=== PATIENT | male | born 1935 | race Caucasian/White ===

== ENCOUNTER 2020-02-09 22:45 | Emergency (ER) | payer MEDICARE ==
--- NOTE | 2020-02-09 23:23 | EDM.PDOC ---
ED HPI GENERAL MEDICAL PROBLEM - General Chief Complaint: Neurological Problem Stated Complaint: MEDICAL VIA [facility] Time Seen by Provider: 02/09/20 23:05 Source of Information: Reports: Patient, EMS, Family, Old Records History Limitations: Reports: No Limitations - History of Present Illness INITIAL COMMENTS - FREE TEXT/NARRATIVE: 84 yo male was sent into the ER via EMS tonight for mild confusion. He couldn't recall how to find the bathroom or his bedroom at home. He says he hit his head on a chair this morning. Later in the day he developed a ESCOBAR that is now less severe after taking some Tylenol. He has not had nausea or vomiting. His gait is not any worse than normal. No fever. PHx of bleeding gastric ulcer from ASA. Onset: Today, Gradual Onset Date: 02/09/20 Duration: Hour(s): Location: Reports: Head (mild ESCOBAR, mild confusion) Quality: Reports: Ache Severity: Mild Improves with: Reports: Medication (Tylenol) Worsens with: Reports: Other (uncertain) Context: Reports: Other (See HPI) Associated Symptoms: Reports: Confusion (mild), Headaches (mild). 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 - Related Data Allergies Allergy/AdvReac Type Severity Reaction Status Date / Time No Known Allergies Allergy Verified 02/09/20 23:00 Home Meds: Home Meds Simvastatin [Zocor] 20 mg PO BEDTIME 06/01/13 [History] Warfarin Sodium 2.5 - 5 mg PO DAILY 06/01/13 [History] hydroCHLOROthiazide [Hydrochlorothiazide] 25 mg PO DAILY 06/01/13 [History] Finasteride [Proscar] 5 mg PO DAILY 02/09/20 [History] Losartan [Cozaar] 12.5 mg PO BID 02/09/20 [History] carvediloL [Carvedilol] 6.25 mg PO DAILY 02/09/20 [History] ED ROS GENERAL - Review of Systems Review Of Systems: See Below Constitutional: Reports: No Symptoms HEENT: Reports: No Symptoms Respiratory: Reports: No Symptoms Cardiovascular: Reports: No Symptoms GI/Abdominal: Reports: No Symptoms : Reports: No Symptoms Musculoskeletal: Reports: No Symptoms Skin: Reports: No Symptoms Neurological: Reports: Confusion (mild), Headache (mild), Numbness (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 Denies: Dizziness Psychiatric: Reports: No Symptoms ED EXAM, NEURO - Physical Exam Exam: See Below Exam Limited By: No Limitations General Appearance: Alert, WD/WN, No Apparent Distress Eye Exam: Bilateral Eye: EOMI, Normal Inspection (pupils bilaterally constricted), PERRL Ears: Normal External Exam, Normal Canal, Hearing Grossly Normal, Other (bilateral hearing aids). No: Normal TMs Nose: Normal Inspection, No Blood Throat/Mouth: Normal Inspection, Normal Lips, Normal Oropharynx, Normal Voice, No Airway Compromise Head Exam: Atraumatic, Normocephalic Neck: Normal Inspection, Supple, Non-Tender Respiratory/Chest: No Respiratory Distress, Lungs Clear, Normal Breath Sounds, No Accessory Muscle Use Cardiovascular: Regular Rate, Rhythm, No Edema GI/Abdominal: Normal Bowel Sounds, Soft, Non-Tender, No Distention Neurological: Alert, Normal Mood/Affect, CN II-XII Intact, No Motor/Sensory Deficits, Oriented x 3 Back Exam: Normal Inspection Extremities: Normal Inspection, Normal Range of Motion, Non-Tender, Pedal Edema (trace pitting edema to both LE's below the knees). No: No Pedal Edema Psychiatric: Normal Affect, Normal Mood Skin Exam: Warm, Dry, Intact, Normal Color, No Rash Course - Vital Signs Text/Narrative:: Case discussed with Dr. Bustos @ [phone] Last Recorded V/S: Last Vital Signs Temp 35.6 C L 02/09/20 22:45 Pulse 70 02/09/20 22:45 Resp 12 02/09/20 22:45 BP 147/77 H 02/09/20 22:45 Pulse Ox 99 02/09/20 22:45 - Orders/Labs/Meds Labs: Laboratory Tests 02/09/20 02/09/20 02/09/20 Range/Units 22:55 22:55 22:55 WBC 4.5 (4.5-11.0) K/uL RBC 4.18 L (4.30-5.90) M/uL Hgb 12.2 (12.0-15.0) g/dL Hct 38.7 L (40.0-54.0) % MCV 93 (80-98) fL MCH 29 (27-31) pg MCHC 32 (32-36) % Plt Count 145 L (150-400) K/uL PT 18.6 H (9.5-12.0) sec INR 1.72 H (0.80-1.20) Sodium 139 L (140-148) mmol/L Potassium 3.9 (3.6-5.2) mmol/L Chloride 101 (100-108) mmol/L Carbon Dioxide 29 (21-32) mmol/L Anion Gap 12.9 (5.0-14.0) mmol/L BUN 21 H (7-18) mg/dL Creatinine 1.1 (0.8-1.3) mg/dL Est Cr Clr Drug Dosing 50.88 mL/min Estimated GFR (MDRD) > 60 (>60) Glucose 106 (74-106) mg/dL Calcium 8.9 (8.5-10.1) mg/dL Troponin I 0.025 (0.000-0.056) ng/mL Urine Color (YELLOW) Urine Appearance (CLEAR) Urine pH (5.0-8.0) Ur Specific [place] (1.008-1.030) Urine Protein (NEGATIVE) mg/dL Urine Glucose (UA) (NEGATIVE) mg/dL Urine Ketones (NEGATIVE) mg/dL Urine Occult Blood (NEGATIVE) Urine Nitrite (NEGATIVE) Urine Bilirubin (NEGATIVE) Urine Urobilinogen (0.2-1.0) EU/dL Ur Leukocyte Esterase (NEGATIVE) Urine RBC (0-5) Urine WBC (0-5) Ur Epithelial Cells Amorphous Sediment Urine Bacteria Urine Mucus 02/09/20 Range/Units 23:45 WBC (4.5-11.0) K/uL RBC (4.30-5.90) M/uL Hgb (12.0-15.0) g/dL Hct (40.0-54.0) % MCV (80-98) fL MCH (27-31) pg MCHC (32-36) % Plt Count (150-400) K/uL PT (9.5-12.0) sec INR (0.80-1.20) Sodium (140-148) mmol/L Potassium (3.6-5.2) mmol/L Chloride (100-108) mmol/L Carbon Dioxide (21-32) mmol/L Anion Gap (5.0-14.0) mmol/L BUN (7-18) mg/dL Creatinine (0.8-1.3) mg/dL Est Cr Clr Drug Dosing mL/min Estimated GFR (MDRD) (>60) Glucose (74-106) mg/dL Calcium (8.5-10.1) mg/dL Troponin I (0.000-0.056) ng/mL Urine Color Yellow (YELLOW) Urine Appearance Clear (CLEAR) Urine pH 7.0 (5.0-8.0) Ur Specific [place] 1.015 (1.008-1.030) Urine Protein Negative (NEGATIVE) mg/dL Urine Glucose (UA) Negative (NEGATIVE) mg/dL Urine Ketones Negative (NEGATIVE) mg/dL Urine Occult Blood Negative (NEGATIVE) Urine Nitrite Negative (NEGATIVE) Urine Bilirubin Negative (NEGATIVE) Urine Urobilinogen 4.0 H (0.2-1.0) EU/dL Ur Leukocyte Esterase Negative (NEGATIVE) Urine RBC 0-5 (0-5) Urine WBC 0-5 (0-5) Ur Epithelial Cells Few Amorphous Sediment Not seen Urine Bacteria Few Urine Mucus Not seen Meds: Medications Discontinued Medications Generic Name Dose Route Start Last Admin Trade Name Freq PRN Reason Stop Dose Admin Aspirin 81 mg 02/09/20 23:54 Aspirin PO 02/09/20 23:55 ONETIME ONE Warfarin Sodium 5 mg 02/10/20 00:06 Coumadin PO 02/10/20 00:07 ONETIME ONE - Radiology Interpretation Free Text/Narrative:: Head CT scan- IMPRESSION: 1. Blurring of the babcock-white junction in the region of the right parietal lobe consistent with an infarct, likely acute to subacute. 2. Old left parietal infarct. 3. Nonspecific white matter disease, likely microangiopathy. Discussed with Dr. Whitfield at 2335 on 02/09/[address] note that all CT scans at this facility use dose modulation, iterative reconstruction, and/or weight-based dosing when appropriate to reduce radiation dose to as low as reasonably achievable. Dictated by Magen Woody MD @ Feb 09 2020 11:28PM (Electronic Signature) CT Results Date: 02/09/20 CT Results Time: 23:40 Departure - Departure Time of Disposition: 00:12 Disposition: Home, Self-Care 01 Condition: Fair Clinical Impression: Subtherapeutic international normalized ratio (INR) CVA (cerebral vascular accident) Qualifiers: CVA mechanism: unspecified Qualified Code(s): I63.9 - Cerebral infarction, unspecified - Discharge Information *PRESCRIPTION DRUG MONITORING PROGRAM REVIEWED*: Not Applicable *COPY OF PRESCRIPTION DRUG MONITORING REPORT IN PATIENT VY: Not Applicable Referrals: Dani Skelton MD [Primary Care Provider] - Forms: ED Department Discharge Additional Instructions: Call your doctor Tuesday morning with your INR report and ask if he wants to adjust your dose. Return here if you should worsen. Sepsis Event Note (ED) - Evaluation Sepsis Screening Result: No Definite Risk - Focused Exam Vital Signs: Vital Signs Temp Pulse Resp BP Pulse Ox 02/09/20 22:45 35.6 C L 70 12 147/77 H 99
--- NOTE | 2020-02-09 23:38 | CRLCT ---
INDICATION: Partial amnesia TECHNIQUE: CT head without contrast. COMPARISON: Head CT 10/14/2012 FINDINGS: CSF spaces: Within normal limits for age. Brain parenchyma: Cerebral atrophy with some indistinctness of the babcock-white junction in the region of the right parietal lobe near the vertex (3, 34). No significant mass effect although no definite encephalomalacia. No intracranial bleed. Note is made of some encephalomalacia within the left parietal lobe consistent with an old infarction. Separate moderately decreased densities present in the deep white matter. Skull base and calvarium: Trace mucosal thickening paranasal sinuses. The visualized orbits are grossly unremarkable. No skull fractures. IMPRESSION: 1. Blurring of the babcock-white junction in the region of the right parietal lobe consistent with an infarct, likely acute to subacute. 2. Old left parietal infarct. 3. Nonspecific white matter disease, likely microangiopathy. Discussed with Dr. Whitfield at 2335 on 02/09/[address] that all CT scans at this facility use dose modulation, iterative reconstruction, and/or weight-based dosing when appropriate to reduce radiation dose to as low as reasonably achievable. Dictated by Magen Woody MD @ Feb 09 2020 11:28PM Signed by Dr. Magen Woody @ Feb 09 2020 11:36PM
[2020-02-09] MEDS ORDERED: Aspirin 81 MG Tab.Chew PO ONE (23:54)
[2020-02-10] MEDS ORDERED: Warfarin 5 MG Tab PO ONE (00:06)
== END 2020-02-10 00:26 | disposition home or self-care (01) ==
LOC: JP.ED 22:45
DX: I63.9 Cerebral infarction, unspecified (principal); R79.1 Abnormal coagulation profile; Z79.899 Other long term (current) drug therapy; Z79.01 Long term (current) use of anticoagulants
CPT/HCPCS: 36415; 70450; 80048; 81001; 84484; 85027; 85610; 99285; A9270; 99284

== ENCOUNTER 2020-03-13 09:05 | Emergency (ER) | payer MEDICARE ==
--- NOTE | 2020-03-13 09:35 | EDM.PDOC ---
ED HPI GENERAL MEDICAL PROBLEM - General Chief Complaint: General Stated Complaint: MEDICAL/CONF.COVID Time Seen by Provider: 03/13/20 09:15 Source of Information: Reports: Patient, EMS History Limitations: Reports: No Limitations - History of Present Illness INITIAL COMMENTS - FREE TEXT/NARRATIVE: 84-year-old male with a history of CVA, tested positive for COVID 1 week ago and is trying quarantine at home with the help from his but over the past 48 to 72 hours is gotten weaker, is having difficulty walking and has fallen twice and has been unable to get up. This morning his finally said she cannot take care of him so called the ambulance. He is still running a low-grade fever but not complaining of increased shortness of breath or cough, does not have pain other than his bruises from falling. He is anticoagulated. His main issue is just profound weakness. Onset: Gradual Duration: Day(s): (Weakness is worsened over the past several days) Location: Reports: Generalized Associated Symptoms: Reports: Cough (Minimal cough), Fever/Chills, Malaise, Weakness. Denies: Chest Pain, Shortness of Breath - Related Data Allergies Allergy/AdvReac Type Severity Reaction Status Date / Time No Known Allergies Allergy Verified 03/13/20 09:18 Home Meds: Home Meds Simvastatin [Zocor] 20 mg PO BEDTIME 06/01/13 [History] Warfarin Sodium 2.5 - 5 mg PO DAILY 06/01/13 [History] hydroCHLOROthiazide [Hydrochlorothiazide] 25 mg PO DAILY 06/01/13 [History] Finasteride [Proscar] 5 mg PO DAILY 02/09/20 [History] Losartan [Cozaar] 12.5 mg PO BID 02/09/20 [History] carvediloL [Carvedilol] 6.25 mg PO DAILY 02/09/20 [History] Past Medical History HEENT History: Reports: Cataract Cardiovascular History: Reports: Afib, Heart Failure, High Cholesterol, Hypertension, Pacemaker Respiratory History: Reports: Sleep Apnea Gastrointestinal History: Reports: PUD Genitourinary History: Reports: BPH Musculoskeletal History: Reports: Arthritis Neurological History: Reports: Concussion, CVA, Neuropathy, Peripheral Psychiatric History: Reports: Depression Hematologic History: Reports: Anticoagulation Therapy - Infectious Disease History Infectious Disease History: Reports: Mumps - Past Surgical History HEENT Surgical History: Reports: Cataract Surgery GI Surgical History: Reports: Appendectomy, Colonoscopy, EGD Social & Family History - Tobacco Use Tobacco Use Status *Q: Never Tobacco User - Caffeine Use Caffeine Use: Reports: Coffee - Recreational Drug Use Recreational Drug Use: No ED ROS GENERAL - Review of Systems Review Of Systems: See Below Constitutional: Reports: Fever, Chills, Malaise HEENT: Denies: Throat Pain Respiratory: Reports: Cough. Denies: Shortness of Breath Cardiovascular: Denies: Chest Pain, Palpitations GI/Abdominal: Denies: Nausea, Vomiting Musculoskeletal: Denies: Muscle Pain, Muscle Stiffness Skin: Reports: Bruising (Bruising has occurred on his chest and left arm from falls). Denies: Cyanosis, Diaphoresis Neurological: Reports: Weakness (Profound diffuse weakness). Denies: Headache ED EXAM, GENERAL - Physical Exam Exam: See Below Exam Limited By: No Limitations General Appearance: Alert, No Apparent Distress, Other (Pleasant gentleman, no distress) Eye Exam: Bilateral Eye: EOMI, Normal Inspection (No jaundice, hydration looks adequate) Head: Atraumatic Neck: Supple, Non-Tender Respiratory/Chest: Lungs Clear Cardiovascular: Regular Rate, Rhythm, No Murmur. No: Tachycardia GI/Abdominal: Soft, Non-Tender Extremities: Other (Patient had a trace of lower extremity edema at the ankles, it is symmetric. He has a bruise on the left arm from a recent fall but no bony tenderness.) Neurological: Alert, Oriented Skin Exam: Other (Several bruises on the chest wall from recent falls) Course - Vital Signs Last Recorded V/S: Last Vital Signs Temp 100.7 F H 03/13/20 09:11 Pulse 70 03/13/20 10:15 Resp 18 03/13/20 10:15 BP 160/85 H 03/13/20 10:15 Pulse Ox 96 03/13/20 10:15 - Orders/Labs/Meds Labs: Laboratory Tests 03/13/20 03/13/20 03/13/20 Range/Units 09:26 09:41 09:41 WBC 3.4 L (4.5-11.0) K/uL RBC 4.51 (4.30-5.90) M/uL Hgb 12.9 (12.0-15.0) g/dL Hct 40.6 (40.0-54.0) % MCV 90 (80-98) fL MCH 29 (27-31) pg MCHC 32 (32-36) % Plt Count 113 L (150-400) K/uL Neut % (Auto) 69 H (36-66) % Lymph % (Auto) 20 L (24-44) % [place] % (Auto) 11 H (2-6) % Eos % (Auto) 0 L (2-4) % Baso % (Auto) 0 (0-1) % PT 23.4 H (9.5-12.0) sec INR 2.18 H (0.80-1.20) Sodium 136 L (140-148) mmol/L Potassium 3.6 (3.6-5.2) mmol/L Chloride 100 (100-108) mmol/L Carbon Dioxide 26 (21-32) mmol/L Anion Gap 13.6 (5.0-14.0) mmol/L BUN 23 H (7-18) mg/dL Creatinine 1.0 (0.8-1.3) mg/dL Est Cr Clr Drug Dosing 55.97 mL/min Estimated GFR (MDRD) > 60 (>60) Glucose 107 H (74-106) mg/dL Calcium 8.6 (8.5-10.1) mg/dL - Re-Assessments/Exams Free Text/Narrative Re-Assessment/Exam: 03/13/20 09:34 A portable chest x-ray will be obtained, a saline lock started and CBC BMP and INR checked. This is a [facility] patient and [facility] does have [facility] beds available at this time so I will call the hospitalist when his lab and x-rays return 03/13/20 10:29 Chest x-ray shows a definite infiltrate or effusions. Patient remained stable. Hemoglobin is normal, platelets 113, WBC 3400. Chemistry panel is also reassuring. INR is 2.18. He was accepted by Dr. Baird for transfer to the [facility] unit in [place] at 10:25 AM Departure - Departure Time of Disposition: 12:16 Disposition: DC/Tfer to Other 70 Clinical Impression: Weakness generalized, COVID-19 Contusion of right chest wall Qualifiers: Encounter type: initial encounter Qualified Code(s): S20.211A - Contusion of right front wall of thorax, initial encounter - Discharge Information Referrals: PCP,None [Primary Care Provider] - Forms: ED Department Discharge Care Plan Goals: Patient will be transferred by EMS to [facility] for admission for further care regarding weakness due to COVID-19 Sepsis Event Note (ED) - Evaluation Sepsis Screening Result: No Definite Risk - Focused Exam Vital Signs: Vital Signs Temp Pulse Resp BP Pulse Ox 03/13/20 10:15 70 18 160/85 H 96 03/13/20 09:45 70 154/77 H 98 03/13/20 09:11 100.7 F H 67 20 162/88 H 97
--- NOTE | 2020-03-13 10:29 | CR ---
CHEST: Portable 03/13/2020 at 9:54 AM CLINICAL HISTORY:Weakness COMPARISON:2018 FINDINGS: The heart is mildly enlarged. Patient has permanent cardiac pacer. Pulmonary vascularity is normal. There are atherosclerotic changes in the aorta and brachycephalic vessels.. No infiltrates are seen. Impression: Mild cardiomegaly No acute cardiopulmonary process
== END 2020-03-13 12:16 | disposition other institution (70) ==
LOC: JP.ED 09:05
DX: U07.1 COVID-19 (principal); S20.214A Contusion of middle front wall of thorax, initial encounter; S40.022A Contusion of left upper arm, initial encounter; I11.0 Hypertensive heart disease with heart failure; I50.9 Heart failure, unspecified; I48.91 Unspecified atrial fibrillation; E78.00 Pure hypercholesterolemia, unspecified; Z79.01 Long term (current) use of anticoagulants; Z79.899 Other long term (current) drug therapy; Z86.73 Personal history of transient ischemic attack (TIA), and cerebral infarction without residual deficits; Z90.49 Acquired absence of other specified parts of digestive tract; W19.XXXA Unspecified fall, initial encounter
CPT/HCPCS: 36415; 71045; 71045-26; 80048; 85025; 85610; 99285-25

== ENCOUNTER 2022-08-21 07:32 | Emergency (ER) | payer MEDICARE ==
[2022-08-21] MEDS ORDERED: Bacitracin Oint 1 GM U/D Packet TOP ONE (08:12)
== END 2022-08-21 09:34 | disposition home or self-care (01) ==
LOC: JP.ED 07:32
DX: S00.03XA Contusion of scalp, initial encounter (principal); I48.91 Unspecified atrial fibrillation; I11.0 Hypertensive heart disease with heart failure; I50.9 Heart failure, unspecified; E78.00 Pure hypercholesterolemia, unspecified; M19.90 Unspecified osteoarthritis, unspecified site; Z87.891 Personal history of nicotine dependence; Z79.01 Long term (current) use of anticoagulants; Z88.8 Allergy status to other drugs, medicaments and biological substances; Z79.899 Other long term (current) drug therapy; W18.30XA Fall on same level, unspecified, initial encounter; Y92.009 Unspecified place in unspecified non-institutional (private) residence as the place of occurrence of the external cause
CPT/HCPCS: 36415; 70450; 80048; 85025; 99284

== ENCOUNTER 2022-12-27 13:06 | Emergency (ER) | payer OTHER, MEDICARE ==
[2022-12-27 14:09] LABS: BASOPHILS ABSOLUTE AUTO 0.04 K/uL (0.00-0.10); BASOPHILS PERCENT AUTO 0.8 % (0.1-1.3); EOSINOPHILS ABSOLUTE AUTO 0.19 K/uL (0.00-0.40); HEMATOCRIT 33.4 % (38.4-49.7); IMMATURE GRAN PERCENT AUTO 0.4 % (0.0-0.7); LYMPHOCYTES ABSOLUTE AUTO 0.92 K/uL (0.8-3.3); LYMPHOCYTES PERCENT AUTO 19.2 % (11.4-47.7); MEAN CORPUSCULAR HEMOGLOBIN 30.6 pg (31.6-35.5); MEAN CORPUSCULAR HGB CONC 32.9 g/dL (31.6-35.5); MONOCYTES ABSOLUTE AUTO 0.52 K/uL (0.20-0.90); MONOCYTES PERCENT AUTO 10.9 % (3.3-12.6); NEUTROPHILS PERCENT AUTO 64.7 % (40.0-78.1); PLATELET COUNT,PLT 128 K/uL (130-375); RED BLOOD CELL COUNT 3.59 M/uL (4.14-5.76); WHITE BLOOD CELL COUNT,WBC 4.8 K/uL (3.2-11.0)
[2022-12-27 14:15] LABS: IMMATURE GRAN ABSOLUTE AUTO 0.02 K/uL (0.00-0.23)
== END 2022-12-27 15:01 | disposition left against medical advice (07) ==
LOC: JP.ED 13:06
DX: R05.9 Cough, unspecified (principal); R06.02 Shortness of breath; I48.91 Unspecified atrial fibrillation; I11.0 Hypertensive heart disease with heart failure; I50.9 Heart failure, unspecified; E78.00 Pure hypercholesterolemia, unspecified; M19.90 Unspecified osteoarthritis, unspecified site; Z79.01 Long term (current) use of anticoagulants; Z98.890 Other specified postprocedural states; Z88.8 Allergy status to other drugs, medicaments and biological substances; Z79.899 Other long term (current) drug therapy
CPT/HCPCS: 36415; 71046; 71046-26; 80053; 83880; 84484; 85025; 93005; 99284

== ENCOUNTER 2023-01-19 15:24 | Emergency (ER) | payer OTHER, MEDICARE | END 2023-01-19 17:50 | LOC: JP.ED 15:24 | DX: T82.119A Breakdown (mechanical) of unspecified cardiac electronic device, initial encounter (principal); I48.91 Unspecified atrial fibrillation; I11.0 Hypertensive heart disease with heart failure; I50.9 Heart failure, unspecified; E78.00 Pure hypercholesterolemia, unspecified; Z79.01 Long term (current) use of anticoagulants; Z88.8 Allergy status to other drugs, medicaments and biological substances; Z79.899 Other long term (current) drug therapy | CPT/HCPCS: 99285 ==

== ENCOUNTER 2023-09-11 12:07 | Inpatient (IN) | payer OTHER, MEDICARE ==
[2023-09-11] MEDS: Sodium Chloride 0.9% 10 ML Syringe FLUSH PRN (12:34)
[2023-09-11] MEDS: Sodium Chloride 0.9% 1,000 ML IV SCH ×2 (12:34→17:36)
[2023-09-11 12:37] LABS: BASOPHILS ABSOLUTE AUTO 0.04 K/uL (0.00-0.10); BASOPHILS PERCENT AUTO 0.7 % (0.1-1.3); EOSINOPHILS PERCENT AUTO 3.7 % (0.0-5.4); HEMATOCRIT 39.8 % (38.4-49.7); IMMATURE GRAN ABSOLUTE AUTO 0.03 K/uL (0.00-0.23); IMMATURE GRAN PERCENT AUTO 0.5 % (0.0-0.7); LYMPHOCYTES ABSOLUTE AUTO 1.11 K/uL (0.8-3.3); LYMPHOCYTES PERCENT AUTO 20.3 % (11.4-47.7); MEAN CORPUSCULAR HEMOGLOBIN 30.2 pg (31.6-35.5); MEAN CORPUSCULAR HGB CONC 32.7 g/dL (31.6-35.5); MEAN CORPUSCULAR VOLUME 92.6 fL (81.4-99.0); MONOCYTES ABSOLUTE AUTO 0.69 K/uL (0.20-0.90); MONOCYTES PERCENT AUTO 12.6 % (3.3-12.6); NEUTROPHILS PERCENT AUTO 62.2 % (40.0-78.1); PLATELET COUNT,PLT 146 K/uL (130-375); WHITE BLOOD CELL COUNT,WBC 5.5 K/uL (3.2-11.0)
[2023-09-11 13:02] LABS: A/G RATIO 0.8 (1.2-2.2); ALANINE AMINOTRANSFERASE,ALT 20 U/L (12-78); ALBUMIN 3.5 g/dL (3.4-5.0); ALKALINE PHOSPHATASE 83 U/L (46-116); ANION GAP 7.5 mmol/L (5.0-14.0); ASPARTATE AMNIOTRANSFERASE,AST 20 U/L (15-37); BILIRUBIN TOTAL 1.4 mg/dL (0.2-1.0); BLOOD UREA NITROGEN,BUN 27 mg/dL (7-18); CARBON DIOXIDE,CO2 30 mmol/L (21-32); CHLORIDE,CL 103 mmol/L (100-108); CREATININE 1.3 mg/dL (0.8-1.3); EST CRCL DRUG DOSING (CG) 43.44 mL/min; ESTIMATED GFR 54 mL/min (>60); GLUCOSE RANDOM 107 mg/dL (74-106); POTASSIUM,K 3.6 mmol/L (3.6-5.2); PROTEIN TOTAL,TP 7.7 g/dL (6.4-8.2); SODIUM,NA 140 mmol/L (140-148); TROPONIN I HIGH SENSITIVITY 21.6 pg/mL (<=60.3)
[2023-09-11 13:14] LABS: APPEARANCE,URINE SLIGHTLY CLOUDY (CLEAR); BILIRUBIN,URINE NEGATIVE (NEGATIVE); COLOR,URINE YELLOW (YELLOW); GLUCOSE,URINE NEGATIVE (NEGATIVE); KETONES,URINE NEGATIVE (NEGATIVE); LEUKOCYTE ESTERASE,URINE NEGATIVE (NEGATIVE); NITRITE,URINE NEGATIVE (NEGATIVE); OCCULT BLOOD,URINE NEGATIVE (NEGATIVE); PROTEIN,URINE NEGATIVE (NEGATIVE); UROBILINOGEN,URINE >=8.0 EU/dL (0.2-1.0)
[2023-09-11 13:24] LABS: AMORPHOUS SEDIMENT,URINE RARE; BACTERIA,URINE NOT SEEN; EPITHELIAL CELLS,URINE NOT SEEN; MUCUS,URINE RARE; RBC,URINE 0-5 (0-5); WBC,URINE 0-5 (0-5)
[2023-09-11 14:23] LABS: INR 1.2; PROTHROMBIN TIME 11.9 sec (9.2-10.6)
[2023-09-11 15:49] LABS: CORONAVIRUS COVID-19 NAA NEGATIVE (NEGATIVE); INFLUENZA A NAA NEGATIVE (NEGATIVE); INFLUENZA B NAA NEGATIVE (NEGATIVE); RESPIRATORY SYNCYTIAL VIR NAA NEGATIVE (NEGATIVE)
[2023-09-11] MEDS ORDERED: Polyethylene Glycol 3350 Powder 17 GM Packet PO PRN (16:15)
[2023-09-11] MEDS ORDERED: Acetaminophen 325 MG Tab PO PRN (16:15)
[2023-09-11] MEDS ORDERED: Ondansetron 4 MG/2 ML SDV IV PRN (16:15)
[2023-09-11] MEDS ORDERED: Sodium Chloride 0.9% 10 ML Syringe FLUSH PRN (16:15)
[2023-09-11] MEDS: Haloperidol 1 MG Tab PO PRN (19:05)
[2023-09-11] MEDS: Melatonin 3 MG Tab PO SCH (20:03)
[2023-09-11] MEDS: Apixaban 5 MG Tab PO SCH (20:03)
[2023-09-11] MEDS: Haloperidol Lactate 5 MG/ML SDV ONE (22:18)
[2023-09-11] MEDS: Haloperidol Lactate 5 MG/ML SDV IVPUSH ONE (22:21)
[2023-09-11] MEDS: Haloperidol Lactate 5 MG/ML SDV IVPUSH PRN (23:52)
[2023-09-12] MEDS ORDERED: Furosemide 20 MG Tab PO SCH (09:00)
[2023-09-12] MEDS: Losartan 25 MG Tab PO SCH (11:39)
[2023-09-12] MEDS: Furosemide 40 MG Tab*POM PO SCH (11:39)
[2023-09-12] MEDS: Divalproex Sodium Delayed-Release 250 MG Tab.CR PO SCH (11:40)
[2023-09-12] MEDS: Finasteride 5 MG Tab PO SCH (11:42)
[2023-09-12] MEDS: Metoprolol Succinate 25 MG Tab.ER PO SCH (11:43)
[2023-09-12] MEDS: Non-Formulary Medication 1 Each (Carvedilol [Carvedilol] 6.25 MG Tablet) PO SCH (19:18)
[2023-09-12] MEDS: Tamsulosin 0.4 MG Cap.ER PO SCH (20:15)
[2023-09-13] MEDS: Divalproex Sodium Delayed-Release 250 MG Tab.CR PO SCH (16:38)
== END 2023-09-14 12:45 | disposition home or self-care (01) | DRG 880 ==
LOC: JP.ED 12:07 → INTOOBSV 14:44 → JP.MS 14:44 → OBSVTOIN 09-12 13:51
PROVIDERS: ADMIT Hospitalist; ATTEND Internal Medicine
DX: R41.0 Disorientation, unspecified (principal); F05 Delirium due to known physiological condition; T36.8X5A Adverse effect of other systemic antibiotics, initial encounter; G62.9 Polyneuropathy, unspecified; Z66 Do not resuscitate; I11.0 Hypertensive heart disease with heart failure; I50.9 Heart failure, unspecified; I48.91 Unspecified atrial fibrillation; E78.00 Pure hypercholesterolemia, unspecified; N40.0 Benign prostatic hyperplasia without lower urinary tract symptoms; R45.1 Restlessness and agitation; F32.A Depression, unspecified; I25.5 Ischemic cardiomyopathy; M19.90 Unspecified osteoarthritis, unspecified site; Z88.8 Allergy status to other drugs, medicaments and biological substances; Z95.0 Presence of cardiac pacemaker; Z98.49 Cataract extraction status, unspecified eye; Z87.11 Personal history of peptic ulcer disease; Z90.49 Acquired absence of other specified parts of digestive tract; Z79.01 Long term (current) use of anticoagulants; Z86.73 Personal history of transient ischemic attack (TIA), and cerebral infarction without residual deficits; Z79.899 Other long term (current) drug therapy; Z98.890 Other specified postprocedural states
CPT/HCPCS: 0241U; 36415; 70450; 80053; 80307; 81001; 83605; 84484; 85025; 85610; 93005; 96360; 96361; 97161; 97530; 99233; 99238; 99285; 93010; 96374; 96376; 99223; A9270-GY; G0378; J1630; J3490; J7030

== ENCOUNTER 2024-07-28 21:05 | Emergency (ER) | payer OTHER, MEDICARE | END 2024-07-28 22:40 | disposition home or self-care (01) | LOC: JP.ED 21:05 | DX: S06.0X0A Concussion without loss of consciousness, initial encounter (principal); I11.0 Hypertensive heart disease with heart failure; I50.9 Heart failure, unspecified; I25.2 Old myocardial infarction; I48.91 Unspecified atrial fibrillation; E78.00 Pure hypercholesterolemia, unspecified; Z90.49 Acquired absence of other specified parts of digestive tract; Z79.899 Other long term (current) drug therapy; Z79.01 Long term (current) use of anticoagulants; Z88.1 Allergy status to other antibiotic agents; Z88.8 Allergy status to other drugs, medicaments and biological substances; W19.XXXA Unspecified fall, initial encounter | CPT/HCPCS: 70450; 99285 ==